=== PATIENT | male | born 1965 | race Caucasian/White ===

== ENCOUNTER 2017-03-08 12:32 | Emergency (ER) | payer BC ==
--- NOTE | 2017-03-08 14:27 | UC ---
Respiratory Complaint HPI - HPI Summary HPI Summary: 52 y/o male presents to the urgent care c/o of SOB and cough after having acid reflux aspiration at 2:30am. Pt reports he ate pizza last night at 20:00 pm and fell asleep, then around 2:30 am he suddenly woke up after aspirating some of his stomach acid. He took some tums to alleviate symptoms. This morning he ate breaskfast normally, but through the morning he has been coughing and with mild SOB. He used his son's albuterol inhaler which has improve his cough. Pt denies fever, chest pain, N/V/D, sore throat, abdominal pain, urinary symptoms. - History of Current Complaint Chief Complaint: UCRespiratory Stated Complaint: SOB Time Seen by Provider: 03/08/17 13:48 Hx Obtained From: Patient Onset/Duration: Sudden Onset, Lasting Hours, Still Present Timing: Intermittent Episodes Severity Initially: Moderate Severity Currently: Mild Pain Intensity: 0 Pain Scale Used: 0-10 Numeric Character: Cough: Nonproductive Alleviating Factors: Bronchodilator, Upright Position Associated Signs And Symptoms: Positive: Nasal Congestion, Hoarseness. Negative : Dyspnea, Fever, Chills, Dizziness, URI - Risk Factors Pulmonary Embolism Risk Factors: Negative Cardiac Risk Factors: Negative Pseudomonas Risk Factors: Negative Tuberculosis Risk Factors: Negative - Allergies/Home Medications Allergies/Adverse Reactions: Allergies Allergy/AdvReac Type Severity Reaction Status Date / Time Paroxetine [From Paxil] Allergy Bleeding Verified 03/08/17 12:35 PMH/Surg Hx/FS Hx/Imm Hx Previously Healthy: Yes - Surgical History Surgical History: None Surgery Procedure, Year, and Place: wisdom teeth extracted - Family History Known Family History: Positive: Hypertension, Other - GERD - Social History Occupation: Employed Full-time Lives: With Family Alcohol Use: Occasionally Substance Use Type: None Smoking Status (MU): Never Smoked Tobacco Review of Systems Constitutional: Negative Skin: Negative Eyes: Negative ENT: Negative Respiratory: Shortness Of Breath, Cough - s/p aspiration of stomach acid Cardiovascular: Negative Gastrointestinal: Negative Genitourinary: Negative Motor: Negative Neurovascular: Negative Musculoskeletal: Negative Neurological: Negative Psychological: Negative All Other Systems Reviewed And Are Negative: Yes Physical Exam Triage Information Reviewed: Yes Appearance: Well-Appearing, No Pain Distress, Well-Nourished, Obese Vital Signs: Initial Vital Signs Temp 98.3 F 03/08/17 12:37 Pulse 88 03/08/17 12:37 Resp 17 03/08/17 12:37 BP 140/90 03/08/17 12:37 Pulse Ox 95 03/08/17 12:37 Vital Signs Reviewed: Yes Eye Exam: Normal Eyes: Positive: Conjunctiva Clear - PERRLA, EOMI, fundi grossly normal ENT: Positive: Normal ENT inspection, Hearing grossly normal, Pharyngeal erythema - mild, Nasal congestion - edematous nasal mucosa, no nasal discharge, TMs normal Dental Exam: Normal Neck exam: Normal Neck: Positive: Supple, Nontender, No Lymphadenopathy Respiratory Exam: Normal Respiratory: Positive: Chest non-tender, Lungs clear, Normal breath sounds. Negative: No respiratory distress, No accessory muscle use, Crackles, Rhonchi, Stridor, Wheezing Cardiovascular Exam: Normal Cardiovascular: Positive: RRR, No Murmur, Pulses Normal Abdominal Exam: Normal Abdomen Description: Positive: No Organomegaly, Soft, Other: - Mild epigastric tenderness on deep palpation. Negative: CVA Tenderness (R), CVA Tenderness (L) Bowel Sounds: Positive: Present Musculoskeletal Exam: Normal Musculoskeletal: Positive: Strength Intact, ROM Intact, No Edema Neurological Exam: Normal Psychological Exam: Normal Skin Exam: Normal UC Diagnostic Evaluation - Laboratory O2 Sat by Pulse Oximetry: 95 Respiratory Course/Dx - Course Course Of Treatment: 52 y/o male c/o SOB, cough s/p aspiration event of acid reflux. Hx obtained. PE abnormal findings:Respiratory: Positive: Chest non- tender, Lungs clear, Normal breath sounds. Negative: No respiratory distress, No accessory muscle use, Crackles, Rhonchi, Stridor, Wheezing. Abdomen Description: Positive: No Organomegaly, Soft, Other: - Mild epigastric tenderness on deep palpation. Negative: CVA Tenderness (R), CVA Tenderness (L) . Chest x-ray ordered r/o aspiration pneumonia. Results. Hyperinflation which can be seen with COPD or reactive pulmonary disease. NO acute pulmonary disease observed. No indications Aspination pneumonia at this moment. Pt is not longer with SOB, only mild pharyngeal irritation and mild cough. Pt Rx Omeprazole 20mg PO qd, and albuterol inhaler to alleviate symptoms. Pt educated on dietary modifications to decrease acid reflux, Sleep with head elevated to avoid reflux while sleeping. Pt O2Sat:98 % at discharge. Pt advised if he develops fever, chills or rigor, SOB to go inmediately to the ED. Pt also educated to decrease salt intake since BP is mildly elevated and d/u with his PCP. Pt understood and agreed, - Differential Dx/Diagnosis Differential Diagnosis/HQI/PQRI: Foreign Body, Aspiration, Asthma, Bronchitis, Laryngitis Provider Diagnoses: GERD, cough, Discharge - Discharge Plan Condition: Stable Disposition: HOME Prescriptions: Albuterol 2.5MG/3ML (0.083%)* [Ventolin 2.5 MG/3 ML NEB.CHRIS*] 2.5 mg INH Q4H #1 neb.chris Albuterol HFA INHALER* [Ventolin HFA Inhaler*] 2 puff INH Q4H PRN #1 mdi PRN Reason: Cough Omeprazole CAP* [Prilosec CAP* 20 MG] 20 mg PO DAILY #30 cap. Patient Education Materials: Aspiration Precautions (ED), Gastroesophageal Reflux Disease (ED), Low Sodium Diet (ED) Referrals: Isaiah Berry MD [Primary Care Provider] - Additional Instructions: Please take medications as directed to alleviate symptoms. If symptoms worsen and you develop fever, chill, rigor, SOB please go immediately to the ER for further evaluation and treatment. Please start dietary modifications as educated , also decrease salt in your diet, . F/u with your PCP for further treatment on your GERD and elevated BP.
[2017-03-08 14:36] VITALS: BP 151/94
--- NOTE | 2017-03-08 14:42 | RAD ---
HISTORY: Shortness of breath, status post aspiration COMPARISONS: None VIEWS: 2: Frontal dual-energy and lateral views of the chest. FINDINGS: CARDIOMEDIASTINAL SILHOUETTE: The cardiomediastinal silhouette is normal. MASTER: The master are normal. PLEURA: The costophrenic angles are sharp. No pleural abnormalities are noted. LUNG PARENCHYMA: There is hyperinflation with flattening of the diaphragm and expansion of the AP diameter of the chest. ABDOMEN: The upper abdomen is clear. There is no subphrenic gas. BONES AND SOFT TISSUES: Degenerative changes are noted OTHER: None. IMPRESSION: HYPERINFLATION, WHICH CAN BE SEEN WITH COPD. OR REACTIVE AIRWAY DISEASE NO ACTIVE CARDIOPULMONARY DISEASE.
== END 2017-03-08 15:09 | disposition home or self-care (01) ==
LOC: UCEAST 12:32
DX: K21.9 Gastro-esophageal reflux disease without esophagitis (principal); R05 Cough
CPT/HCPCS: 71020; 99212; G0463

== ENCOUNTER 2018-04-15 10:14 | Emergency (ER) | payer BC ==
[2018-04-15 10:37] VITALS: BP 128/84
--- NOTE | 2018-04-15 10:41 | UC ---
Back Pain HPI - HPI Summary HPI Summary: 53 yo male presents with left flank pain since this morning. He tells me that he has been doing a lot of heavy lifting lately fixing his vehicle. Last night the cat slept in the bed with him and he says that he slept in an awkward position. Woke up this morning and had severe left lower back and flank pain. He does have a hx of kidney stones and says that this feels similar. He took tylenol and naproxen with no relief. Denies fever, chills, SOB, chest pain/ pressure, abdominal pain, n/v/d/c, dysuria, hematuria, saddle anesthesia, or numbness. - History of Current Complaint Chief Complaint: UCBackPain Stated Complaint: LOWER BACK PAIN Time Seen by Provider: 04/15/18 10:39 Hx Obtained From: Patient Onset/Duration: Sudden Onset Severity Initially: Moderate Severity Currently: Moderate Pain Intensity: 5 Pain Scale Used: 0-10 Numeric - Allergies/Home Medications Allergies/Adverse Reactions: Allergies Allergy/AdvReac Type Severity Reaction Status Date / Time paroxetine [From Paxil] Allergy Bleeding Verified 04/15/18 10:38 Home Medications: Home Medications Albuterol 2.5MG/3ML (0.083%)* [Ventolin 2.5 MG/3 ML NEB.CHRIS*] 2.5 mg INH Q4H PRN 04/15/18 [History Confirmed 04/15/18] Multivitamin [Multivitamins] 1 cap PO DAILY 04/15/18 [History Confirmed 04/15/18 ] PMH/Surg Hx/FS Hx/Imm Hx Respiratory History: Asthma Psychological History: Anxiety, Depression - Surgical History Surgical History: None Surgery Procedure, Year, and Place: wisdom teeth extracted - Family History Known Family History: Positive: Hypertension, Other - GERD - Social History Occupation: Employed Full-time Lives: With Family Alcohol Use: Rare Substance Use Type: None Smoking Status (MU): Never Smoked Tobacco Review of Systems Constitutional: Negative Skin: Negative Respiratory: Negative Cardiovascular: Negative Gastrointestinal: Negative Genitourinary: Negative Neurovascular: Negative Musculoskeletal: Other: - Left flank pain Neurological: Negative Psychological: Negative All Other Systems Reviewed And Are Negative: Yes Physical Exam - Summary Physical Exam Summary: GENERAL: NAD. WDWN. No pain distress. SKIN: No rashes, sores, lesions, or open wounds. NECK: Supple. Nontender. No lymphadenopathy. CHEST: CTAB. No r/r/w. No accessory muscle use. Breathing comfortably and in no distress. CV: RRR. Without m/r/g. Pulses intact. Brisk cap refill. ABDOMEN: LEFT CVA ttp. Soft. NTTP. No distention or guarding. Bowel sounds present MSK: TTP over left lumbar paraspinal muscles. Pain with flexion and extension of spine. Positive SLR on left. Strength 5/5 B/L LEs including dorsiflexion and plantar flexion. FROM B/L LEs. No edema. NEURO: Alert. CN II-XII grossly intact. PSYCH: Age appropriate behavior. Triage Information Reviewed: Yes Vital Signs: Initial Vital Signs Temp 97.8 F 04/15/18 10:32 Pulse 69 04/15/18 10:32 Resp 16 04/15/18 10:32 BP 128/84 04/15/18 10:32 Pulse Ox 97 04/15/18 10:32 Vital Signs Reviewed: Yes Back Pain Course/Dx - Course Course Of Treatment: CT: IMPRESSION: 1. PUNCTATE NONOBSTRUCTING RIGHT RENAL CALYCEAL STONE. NO APPRECIABLE LEFT. NEPHROLITHIASIS. NO HYDRONEPHROSIS. 2. HEPATOMEGALY WITH FATTY INFILTRATION OF THE LIVER. 3. SPONDYLOLYSIS WITH SPONDYLOLISTHESIS AT L5-S1. 4. ENLARGED PROSTATE. Suspect low back spasm. Advised to f/u with PCP regarding other CT findings. Rx for flexeril and meloxicam. - Differential Dx/Diagnosis Provider Diagnoses: Low back spasm Discharge - Sign-Out/Discharge Documenting (check all that apply): Patient Departure - Discharge Plan Condition: Stable Disposition: HOME Prescriptions: Cyclobenzaprine TAB* [Flexeril 10 MG TAB*] 10 mg PO BID PRN #20 tab PRN Reason: Pain Meloxicam 7.5 mg PO BID PRN #20 tab PRN Reason: Pain Patient Education Materials: Muscle Spasm (ED), Lower Back Exercises (ED) Referrals: Isaiah Berry MD [Primary Care Provider] - Additional Instructions: If you develop a fever, shortness of breath, chest pain, new or worsening symptoms - please call your PCP or go to the ED. 1) Do not take ibuprofen/motrin/aleve/naproxen in addition to the MELOXICAM as these medications may interact. - Billing Disposition and Condition Condition: STABLE Disposition: Home
--- NOTE | 2018-04-15 11:29 | RAD ---
CLINICAL HISTORY: LEFT flank pain. Hx of stone COMPARISON: None TECHNIQUE: Multiple contiguous axial CT scans were obtained of the abdomen and pelvis, without intravenous contrast enhancement. Coronal and sagittal multiplanar reformations are submitted for review. FINDINGS: LUNG BASES: The lung bases are clear. LIVER: The liver is diffusely low in attenuation compared to the spleen. There are no focal hepatic parenchymal masses. The liver measures 19 cm in long axis. BILE DUCTS: There is no intrahepatic or extrahepatic biliary dilatation. GALLBLADDER: The gallbladder is normal, without pericholecystic inflammatory change. PANCREAS: The pancreas is normal, without mass or ductal dilatation. SPLEEN: Normal in size and appearance. UPPER GI TRACT: Evaluation of the gastrointestinal tract is limited by incomplete gastric distention. The upper GI tract is unremarkable. SMALL BOWEL AND MESENTERY: The small bowel is normal in contour, course, and caliber. There is no obstruction or dilatation. COLON: The colon is normal in contour, course, caliber. There is no pericolonic inflammatory change. ADRENALS: Normal bilaterally. KIDNEYS: There is a punctate nonobstructing right renal calyceal stone on axial image 72. There is no hydronephrosis bilaterally.. BLADDER: The bladder is collapsed and is not well evaluated. PELVIC ORGANS: The prostate is diffusely enlarged. The seminal vesicles are symmetric. AORTA: The aorta is normal. IVC: Unremarkable LYMPH NODES: There is no lymphadenopathy by size criteria. ABDOMINAL WALL: There is no evidence for abdominal wall hernia. BONES AND SOFT TISSUES: There is spondylolysis with spinal listhesis at L5-S1 with associated sclerotic reactive endplate changes and severe bilateral neural foraminal narrowing. There is degenerative disc disease and osteoarthritis noted elsewhere OTHER: None IMPRESSION: 1. PUNCTATE NONOBSTRUCTING RIGHT RENAL CALYCEAL STONE. NO APPRECIABLE LEFT NEPHROLITHIASIS. NO HYDRONEPHROSIS. 2. HEPATOMEGALY WITH FATTY INFILTRATION OF THE LIVER. 3. SPONDYLOLYSIS WITH SPONDYLOLISTHESIS AT L5-S1. 4. ENLARGED PROSTATE.
== END 2018-04-15 11:47 | disposition home or self-care (01) ==
LOC: UCEAST 10:14
DX: M62.830 Muscle spasm of back (principal); J45.909 Unspecified asthma, uncomplicated; Z87.442 Personal history of urinary calculi; Z88.8 Allergy status to other drugs, medicaments and biological substances
CPT/HCPCS: 74176; 81003; 99212; G0463

== ENCOUNTER 2018-10-30 15:41 | Emergency (ER) | payer BC ==
--- OUTSIDE RECORDS SUMMARY | 2018-10-30 15:46 | XMS REPORT | Continuity of Care Document ---
:1965 External Reference #:[id number] Author Name Blade More MD Address [address] [place] [address] Care Team Providers Name Role Phone Isaiah Berry M.D. Care Team Information Financial Services Education Consultant Unavailable Isaiah Berry M.D. Primary Care Physician Unavailable Payers Type Date Identification Numbers Payment Provider Subscriber PayID: [id number] [facility] Brennon 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 Tobacco Use Start: Unknown Never Smoked Cigarettes Tobacco Use Start: Unknown Never Smoked Cigars Tobacco Use Start: Unknown Never Smoked A Pipe Smokeless Tobacco Never Used Smokeless Tobacco ETOH Use Currently occasionally consumes alcohol Allergies, Adverse Reactions, Alerts Date Description Reaction Status Severity Comments 10/20/2018 Paxil Active Medications Medication Date Status Form Strength Qnty SIG Indications Ordering Provider Zoloft Active Tablets 1 by Unknown 00 mouth every day Rosuvastatin Active Tablets 1 tab Unknown Calcium 00 daily Immunizations Description No Information Available Vital Signs Date Vital Result Comment 10/20/2018 9:26am Weight 220.00 lb Weight 99.792 kg Height 72 inches 6'0" Height in cm's 182.9 cm BMI (Body Mass Index) 29.8 kg/m2 Results Description No Information Available Procedures Description No Information Available Encounters Type Date Location Provider Dx Diagnosis Office Visit 10/20/2018 [facility] 09/23/07 Blade More MD Q38.2 Macroglossia 9:45a G47.33 Obstructive sleep apnea (adult) (pediatric) H93.19 Tinnitus, unspecified ear H90.5 Unspecified sensorineural hearing loss Plan of Treatment 10/20/2018 - Blade More MDQ38.2 [id number] Obstructive sleep apnea (adult) (pediatric)Comments:Patient with findings of obstructive symptoms obvious macroglossia or micrognathia and low lying soft palate high index of suspicion for moderate to severe sleep apnea. Schedule for a sleep study. # 2he has tinnitus with sensorineural hearing loss most likely secondary to noise exposure I did discuss with him prophylaxis from noise exposure repeat audiogram in 2 years time.H93.19 Tinnitus, unspecified earH90.5 Unspecified sensorineural hearing loss
[2018-10-30 15:56] VITALS: BP 138/84
--- NOTE | 2018-10-30 16:49 | UC ---
Throat Pain/Nasal Bk HPI - History of Current Complaint Chief Complaint: UCGeneralIllness Stated Complaint: SINUS CONGESTION Time Seen by Provider: 10/30/18 16:41 Hx Obtained From: Patient Pain Intensity: 2 - Allergies/Home Medications Allergies/Adverse Reactions: Allergies Allergy/AdvReac Type Severity Reaction Status Date / Time paroxetine [From Paxil] Allergy Bleeding Verified 10/30/18 15:57 PMH/Surg Hx/FS Hx/Imm Hx - Surgical History Surgical History: Yes Surgery Procedure, Year, and Place: T&A, wisdom teeth extracted - Family History Known Family History: Positive: Hypertension, Other - GERD - Social History Alcohol Use: Occasionally Substance Use Type: None Smoking Status (MU): Never Smoked Tobacco Physical Exam Vital Signs: Initial Vital Signs Temp 98.1 F 10/30/18 15:50 Pulse 82 10/30/18 15:50 Resp 16 10/30/18 15:50 BP 138/84 10/30/18 15:50 Pulse Ox 97 10/30/18 15:50 Throat Pain/Nasal Course/Dx - Differential Dx/Diagnosis Differential Diagnosis/HQI/PQRI: Sinusitis, URI Provider Diagnosis: Sinusitis Discharge - Sign-Out/Discharge Documenting (check all that apply): Patient Departure All imaging exams completed and their final reports reviewed: No Studies - Discharge Plan Condition: Good Disposition: HOME Patient Education Materials: Sinusitis (ED) Referrals: Isaiah Berry MD [Primary Care Provider] - Additional Instructions: follow up with your pcp if no improvement - Billing Disposition and Condition Condition: GOOD Disposition: Home
== END 2018-10-30 16:45 | disposition home or self-care (01) ==
LOC: UCEAST 15:41
DX: J32.9 Chronic sinusitis, unspecified (principal); Z88.8 Allergy status to other drugs, medicaments and biological substances
CPT/HCPCS: 99212; G0463

== ENCOUNTER 2019-08-31 07:49 | Emergency (ER) | payer BC ==
[2019-08-31 08:04] VITALS: BP 149/85
--- NOTE | 2019-08-31 08:09 | UC ---
Skin Complaint HPI - HPI Summary HPI Summary: 54 yo male presents with mouth sore. 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 Since that time has noticed increasing redness, pain, and swelling to his right upper lip within the hair of the mustache. He has tried to "pop" the area with no relief. Denies fever, chills, or hx of MRSA - History of Current Complaint Chief Complaint: UCSkin Time Seen by Provider: 08/31/19 08:07 Stated Complaint: SKIN COMPLAINT Hx Obtained From: Patient Onset/Duration: Gradual Onset Onset Severity: Mild Current Severity: Mild Pain Intensity: 4 - Allergy/Home Medications Allergies/Adverse Reactions: Allergies Allergy/AdvReac Type Severity Reaction Status Date / Time paroxetine [From Paxil] Allergy Bleeding Verified 08/31/19 07:53 Home Medications: Home Medications Rosuvastatin Calcium 1 tab PO DAILY 08/31/19 [History Confirmed 08/31/19] PMH/Surg Hx/FS Hx/Imm Hx Endocrine History: Dyslipidemia Psychological History: Anxiety, Depression - Surgical History Surgical History: Yes Surgery Procedure, Year, and Place: T&A, wisdom teeth extracted - Family History Known Family History: Positive: Hypertension, Other - GERD - Social History Occupation: Employed Full-time Lives: With Family Alcohol Use: Occasionally Substance Use Type: None Smoking Status (MU): Never Smoked Tobacco Review of Systems All Other Systems Reviewed And Are Negative: No Constitutional: Positive: Negative Skin: Positive: Other - ?abscess face Respiratory: Positive: Negative Cardiovascular: Positive: Negative Neurological: Positive: Negative Psychological: Positive: Negative Physical Exam - Summary Physical Exam Summary: GENERAL: NAD. WDWN. No pain distress. SKIN: Right upper lip underlying mustache hair with 1.5cm area of edema and mild tenderness with slight erythema. Area of firmness without induration. NECK: Supple. Nontender. No lymphadenopathy. CHEST: No accessory muscle use. Breathing comfortably and in no distress. CV: Pulses intact. Cap refill <2seconds NEURO: Alert. PSYCH: Age appropriate behavior. Triage Information Reviewed: Yes Vital Signs: Initial Vital Signs Temp 97.6 F 08/31/19 08:02 Pulse 74 08/31/19 08:02 Resp 15 08/31/19 08:02 BP 149/85 08/31/19 08:02 Pulse Ox 100 08/31/19 08:02 Vital Signs Reviewed: Yes Course/Dx - Course Course Of Treatment: Abscess of upper lip. Rx for keflex. Advised to return if this area comes to a head or becomes fluctuant for I&D - Diagnoses Provider Diagnosis: Abscess, lip Discharge ED - Sign-Out/Discharge Documenting (check all that apply): Patient Departure All imaging exams completed and their final reports reviewed: No Studies - Discharge Plan Condition: Stable Disposition: HOME Prescriptions: Cephalexin CAP* [Keflex CAP*] 500 mg PO TID #21 cap Patient Education Materials: Abscess (ED) Referrals: Isaiah Berry MD [Primary Care Provider] - Additional Instructions: If you develop a fever, shortness of breath, chest pain, new or worsening symptoms - please call your PCP or go to the ED immediately. Your blood pressure was elevated at todays visit. Please see your primary provider within 4 weeks for recheck and re-evaluation. - Billing Disposition and Condition Condition: STABLE Disposition: Home
== END 2019-08-31 08:20 | disposition home or self-care (01) ==
LOC: UCEAST 07:49
DX: K13.0 Diseases of lips (principal); E78.5 Hyperlipidemia, unspecified; Z88.8 Allergy status to other drugs, medicaments and biological substances; Z79.899 Other long term (current) drug therapy
CPT/HCPCS: 99212; G0463